=== PATIENT | female | born 1970 | race Caucasian/White ===

== ENCOUNTER 2024-03-13 00:39 | Inpatient (IN) | payer OTHER ==
[~2024-03-13] VITALS: Ht 167.6 cm; Wt 59.0 kg
[~2024-03-13 00:39] MED LIST: LEVO175T7 PO; PRED10TA PO
[2024-03-13] MEDS: IV NS 1000 ML 1,000 ML IV ONE (01:14)
[2024-03-13 01:15] LABS: BASOPHILS # (AUTO) 0.1 K/UL (0.0-0.2); BASOPHILS % (AUTO) 1.1 % (0.0-2.0); EOSINOPHILS # (AUTO) 0.1 K/uL (0.0-0.7); EOSINOPHILS % (AUTO) 2.3 % (0.0-7.0); HEMATOCRIT 30.4 % (31.2-41.9); LYMPHOCYTES # (AUTO) 2.4 K/uL (0.8-4.8); LYMPHOCYTES % (AUTO) 50.7 % (20.5-51.5); MEAN CORPUSCULAR HEMOGLOBIN 20.5 uug (24.7-32.8); MEAN CORPUSCULAR HGB CONC 30 g/dL (32.3-35.6); MEAN CORPUSCULAR VOLUME 68.9 fL (75.5-95.3); MONOCYTES # (AUTO) 0.4 K/uL (0.1-1.30); MONOCYTES % (AUTO) 9.4 % (0.0-11.0); NEUTROPHILS # (AUTO) 1.7 K/uL (1.8-8.9); NEUTROPHILS % (AUTO) 36.5 % (38.5-71.5); PLATELET COUNT (AUTO) 310 K/uL (179-408); RED BLOOD CELL COUNT(AUTO) 4.42 MIL/uL (3.63-4.92); RED CELL DISTRIBUTION WIDTH 28.5 % (12.3-17.7); WHITE BLOOD COUNT (AUTO) 4.7 K/uL (3.8-11.8)
[2024-03-13] MEDS: MORPHINE SULFATE 4 MG/1 ML DISP.SYRIN IV ONE ×2 (01:16→08:30)
[2024-03-13] MEDS: ONDANSETRON 4 MG/2 ML VIAL IV ONE ×2 (01:17→08:30)
[2024-03-13 01:30] LABS: MAGNESIUM 1.8 mg/dL (1.8-2.4)
[2024-03-13 01:36] LABS: ALBUMIN 3.7 g/dL (3.4-5.0); BILIRUBIN,DIRECT 0.1 mg/dL (0.0-0.2); BILIRUBIN,TOTAL 0.2 mg/dL (0.2-1.0); CALCIUM 8.4 mg/dL (8.5-10.1); CREATININE 0.6 mg/dL (0.6-1.3); POTASSIUM 3.9 mmol/L (3.5-5.1); TOTAL PROTEIN, SERUM 7.6 g/dL (6.4-8.2)
[2024-03-13 02:13] LABS: DIFFERENTIAL COMMENT 1
[2024-03-13 02:34] LABS: *BILIRUBIN,URIN NEGATIVE (NEGATIVE); *CLARITY,URINE CLEAR (CLEAR); *COLOR,URINE YELLOW (YELLOW); *KETONES,URINE NEGATIVE (NEGATIVE); *PROTEIN,URINE NEGATIVE (NEGATIVE); *UROBILINOGEN,URINE 0.2 E.U./dl (NORMAL); LEUKOCYTE ESTERASE ,URINE NEGATIVE (NEGATIVE); NITRITE, URINE NEGATIVE (NEGATIVE); PH,URINE 5.5 (5.0-8.0); UGLUCOSE NEGATIVE (NEGATIVE)
[2024-03-13 02:37] LABS: *BLOOD, URINE TRACE (NEGATIVE)
[2024-03-13 03:15] LABS: BAND % (MANUAL) 1 % (0-10); EOSINOPHILS % (MANUAL) 5 % (0-8); LYMPHOCYTES % (MANUAL) 58 % (20-40); MONOCYTES % (MANUAL) 5 % (2-10); NEUTROPHILS % (MANUAL) 31 % (42-75)
[2024-03-13 03:16] LABS: ANISOCYTOSIS 1+; HYPOCHROMASIA 1+; PLATELET ESTIMATE ADEQUATE
[2024-03-13 03:17] LABS: OVALOCYTES 1+
[2024-03-13 03:19] LABS: RBC,URINE 0-3 /HPF (0-3); WBC,URINE NONE SEEN /HPF (0-3)
[2024-03-13] MEDS ORDERED: MORPHINE SULFATE 4 MG/1 ML DISP.SYRIN ONE (08:27)
[2024-03-13] MEDS ORDERED: ONDANSETRON 4 MG/2 ML VIAL ONE (08:27)
[2024-03-13] MEDS ORDERED: LIDOCAINE VISCUS 2% 15 ML UDC ONE (08:27)
[2024-03-13] MEDS: IV NORMAL SALINE 500 ML BAG IV ONE (08:31)
[2024-03-13] MEDS: LIDOCAINE 2% (GLYDO= UROJET) 10 ML JELLY MM ONE (08:31)
[2024-03-13] MEDS: LIDOCAINE VISCUS 2% 15 ML UDC MM ONE (09:12)
[2024-03-13] MEDS ORDERED: ONDANSETRON 4 MG/2 ML VIAL IV PRN (09:15)
[2024-03-13] MEDS: THIAMINE HCL INJ 100 MG in IV DEXTROSE 5% 50 ML IV SCH (11:18)
[2024-03-13] MEDS: FOLIC ACID 1 MG in IV DEXTROSE 5% 50 ML IV SCH (11:18)
[2024-03-13] MEDS: IV D5 1/2 NS 1000 ML 1,000 ML IV PRN (11:22)
[2024-03-13] MEDS ORDERED: CHOL-35 PO (14:23)
[2024-03-13] MEDS ORDERED: ATOR20TA PO (14:23)
[2024-03-13] MEDS ORDERED: FERR-68 PO (14:23)
[2024-03-13] MEDS ORDERED: CALC-959 PO (14:23)
[2024-03-13] MEDS ORDERED: NALT50TA PO (14:23)
[2024-03-13] MEDS ORDERED: GABA-532 PO (14:23)
[2024-03-13] MEDS ORDERED: MELO-105 PO (14:23)
[2024-03-13] MEDS ORDERED: BUPR75TA8 PO (14:23)
[2024-03-13] MEDS ORDERED: DULO60CA45 PO (14:23)
[2024-03-13] MEDS ORDERED: THIA100T70 PO (14:23)
[2024-03-13] MEDS ORDERED: FOLI1TAB94 PO (14:23)
[2024-03-13] MEDS: MORPHINE SULFATE 2 MG/1 ML DISP.SYRIN IV PRN (17:37)
[2024-03-13 20:00] VITALS: BP 141/96; TEMP 97.8; O2SAT 94
[2024-03-14 07:01] VITALS: BP 149/99; TEMP 98; O2SAT 96
[2024-03-14 07:23] LABS: BASOPHILS % (AUTO) 0.7 % (0.0-2.0); EOSINOPHILS # (AUTO) 0.1 K/uL (0.0-0.7); EOSINOPHILS % (AUTO) 1.6 % (0.0-7.0); HEMATOCRIT 28.6 % (31.2-41.9); HEMOGLOBIN 8.5 g/dL (10.9-14.3); LYMPHOCYTES # (AUTO) 1.1 K/uL (0.8-4.8); LYMPHOCYTES % (AUTO) 19.7 % (20.5-51.5); MEAN CORPUSCULAR HEMOGLOBIN 20.3 uug (24.7-32.8); MEAN CORPUSCULAR HGB CONC 30 g/dL (32.3-35.6); MEAN CORPUSCULAR VOLUME 68.6 fL (75.5-95.3); MONOCYTES # (AUTO) 0.6 K/uL (0.1-1.30); MONOCYTES % (AUTO) 10.9 % (0.0-11.0); NEUTROPHILS # (AUTO) 3.7 K/uL (1.8-8.9); NEUTROPHILS % (AUTO) 67.1 % (38.5-71.5); PLATELET COUNT (AUTO) 292 K/uL (179-408); RED BLOOD CELL COUNT(AUTO) 4.18 MIL/uL (3.63-4.92); RED CELL DISTRIBUTION WIDTH 28.1 % (12.3-17.7); WHITE BLOOD COUNT (AUTO) 5.5 K/uL (3.8-11.8)
[2024-03-14 07:47] LABS: THYROID STIMULATING HORMONE 4.23 mIU/mL (0.358-3.740)
[2024-03-14 08:12] LABS: CALCIUM 8.1 mg/dL (8.5-10.1); CREATININE 0.5 mg/dL (0.6-1.3); MAGNESIUM 1.4 mg/dL (1.8-2.4); PHOSPHOROUS 3.1 mg/dL (2.5-4.9); POTASSIUM 2.9 mmol/L (3.5-5.1)
[2024-03-14 08:15] LABS: DIFFERENTIAL COMMENT 1
[2024-03-14 10:06] LABS: CARCINOEMBRYONIC AG (CEA) 2.1 ng/mL (0.0-4.7)
[2024-03-14] MEDS: POTASSIUM CHLORIDE 50 ML IV SCH (11:07)
[2024-03-14] MEDS: MAGNESIUM SULFATE/D5W 100 ML IV SCH (11:10)
[2024-03-14 11:37] LABS: EOSINOPHILS % (MANUAL) 1 % (0-8); LYMPHOCYTES % (MANUAL) 18 % (20-40); MONOCYTES % (MANUAL) 10 % (2-10); NEUTROPHILS % (MANUAL) 71 % (42-75); PLATELET ESTIMATE ADEQUATE
[2024-03-14 11:38] LABS: ANISOCYTOSIS 2+; HYPOCHROMASIA 1+
[2024-03-14 11:40] LABS: TEAR DROP CELLS 1+
[2024-03-14] MEDS ORDERED: IOHEXOL 300MG/ML 100 ML INFUS..BTL ONE (12:07)
[2024-03-14] MEDS ORDERED: IV NORMAL SALINE 250 ML IV ONE (12:07)
[2024-03-14] MEDS ORDERED: SWABABLE VALVE TRANSFER SET EA MC ONE (12:07)
[2024-03-14 13:00] VITALS: BP 143/92; TEMP 98.3; O2SAT 97
[2024-03-14 16:00] VITALS: BP 150/94; TEMP 98.2; O2SAT 97
[2024-03-14] MEDS: SOD FERRIC GLUC COMPLX/SUCROSE 125 MG in IV NORMAL SALINE 100 ML IV SCH (16:43)
[2024-03-14 19:45] VITALS: BP 145/93; TEMP 97.9; O2SAT 97
[2024-03-14] MEDS: LORAZEPAM 2 MG/1 ML VIAL IV PRN (19:57)
[2024-03-15 05:36] VITALS: BP 134/82; TEMP 98.3; O2SAT 95
[2024-03-15] MEDS: LEVOTHYROXINE SODIUM 175 MCG TABLET PO SCH (06:21)
[2024-03-15 06:41] LABS: BASOPHILS % (AUTO) 0.9 % (0.0-2.0); EOSINOPHILS # (AUTO) 0.2 K/uL (0.0-0.7); EOSINOPHILS % (AUTO) 4.4 % (0.0-7.0); HEMATOCRIT 30.2 % (31.2-41.9); LYMPHOCYTES % (AUTO) 24.6 % (20.5-51.5); MEAN CORPUSCULAR HEMOGLOBIN 21.1 uug (24.7-32.8); MEAN CORPUSCULAR HGB CONC 30 g/dL (32.3-35.6); MEAN CORPUSCULAR VOLUME 70.9 fL (75.5-95.3); MONOCYTES # (AUTO) 0.4 K/uL (0.1-1.30); MONOCYTES % (AUTO) 10.1 % (0.0-11.0); NEUTROPHILS # (AUTO) 2.6 K/uL (1.8-8.9); PLATELET COUNT (AUTO) 309 K/uL (179-408); RED BLOOD CELL COUNT(AUTO) 4.26 MIL/uL (3.63-4.92); RED CELL DISTRIBUTION WIDTH 27.6 % (12.3-17.7); WHITE BLOOD COUNT (AUTO) 4.3 K/uL (3.8-11.8)
[2024-03-15 06:55] LABS: CALCIUM 8.6 mg/dL (8.5-10.1); CREATININE 0.5 mg/dL (0.6-1.3); POTASSIUM 3.4 mmol/L (3.5-5.1)
[2024-03-15] MEDS ORDERED: LEVOTHYROXINE SODIUM 175 MCG TABLET PO SCH ×2 (07:00)
[2024-03-15] MEDS ORDERED: LORAZEPAM 2 MG/1 ML VIAL IV PRN (07:45)
[2024-03-15] MEDS ORDERED: DULOXETINE 60 MG CAPSULE.DR PO SCH (09:00)
[2024-03-15] MEDS ORDERED: FERROUS SULFATE 325 MG TABEC PO SCH (09:00)
[2024-03-15] MEDS ORDERED: GABAPENTIN 300 MG CAPSULE PO SCH (09:00)
[2024-03-15] MEDS ORDERED: predniSONE 10 MG TABLET PO SCH ×2 (09:00)
[2024-03-15] MEDS ORDERED: GABAPENTIN 100 MG CAPSULE PO SCH (09:00)
[2024-03-15 09:08] LABS: AFP, TUMOR MARKER <1.8 ng/mL (0.0-9.2); CANCER AG, 125 13.8 U/mL (0.0-38.1); CANCER ANTIGEN 15-3 42.6 U/mL (0.0-25.0); FOLATE (FOLIC ACID), SERUM >20.0 ng/mL (>3.0)
[2024-03-15 09:48] LABS: *OCCULT BLOOD STOOL NEGATIVE (NEGATIVE)
[2024-03-15] MEDS: DULOXETINE 60 MG CAPSULE.DR PO SCH (09:57)
[2024-03-15] MEDS: CHOLECALCIFEROL 1,000 UNIT TABLET PO SCH (09:58)
[2024-03-15] MEDS: CALCIUM CARB/VITAMIN D 600-400 MG TABLET PO SCH (09:58)
[2024-03-15] MEDS: FOLIC ACID 1 MG TABLET PO SCH (09:58)
[2024-03-15] MEDS: THIAMINE HCL 100 MG TABLET PO SCH (09:58)
[2024-03-15] MEDS: POTASSIUM CHLORIDE 20 MEQ TAB.PRT.SR PO ONE (10:00)
[2024-03-15] MEDS: buPROPion 75 MG TABLET PO SCH (10:00)
[2024-03-15 12:00] VITALS: BP 141/101; TEMP 97.5; O2SAT 97
[2024-03-15] MEDS: CHLORDIAZEPOXIDE HCL 25 MG CAPSULE PO SCH (12:08)
[2024-03-15] MEDS: SOD FERRIC GLUC COMPLX/SUCROSE 125 MG in IV NORMAL SALINE 100 ML IV SCH (14:02)
[2024-03-15] MEDS ORDERED: LEVO150T8 PO (14:20)
[2024-03-15] MEDS ORDERED: PRED-170 PO (14:20)
[2024-03-15 16:00] VITALS: BP 117/77; TEMP 98; O2SAT 93
[2024-03-15] MEDS ORDERED: MULT-594 PO (16:29)
[2024-03-15] MEDS ORDERED: TRAZ-257 PO (16:29)
[2024-03-15] MEDS: GABAPENTIN 300 MG CAPSULE PO SCH (17:27)
[2024-03-15 20:00] VITALS: BP 140/95; TEMP 97.8; O2SAT 95
[2024-03-15] MEDS: ATORVASTATIN 20 MG TABLET PO SCH (20:42)
[2024-03-16] MEDS: TRAZODONE 100 MG TABLET PO PRN (00:23)
[2024-03-16 03:10] LABS: HEPATITIS B SURFACE AB, QUAL Non Reactive (.); HEPATITIS B SURFACE AG Negative (Negative); HEPATITIS C VIRUS ANTIBODY Non Reactive (Non Reactive)
[2024-03-16 04:00] VITALS: BP 135/90; TEMP 98; O2SAT 96
[2024-03-16] MEDS: LEVOTHYROXINE SODIUM 150 MCG TABLET PO SCH (06:06)
[2024-03-16 07:09] LABS: *IMMUNOGLOBULIN G, SERUM 1043 mg/dL (586-1602); IMMUNOGLOBULIN A, SERUM 467 mg/dL (87-352); IMMUNOGLOBULIN M, SERUM 223 mg/dL (26-217)
[2024-03-16 07:18] LABS: CALCIUM 8.5 mg/dL (8.5-10.1); CREATININE 0.5 mg/dL (0.6-1.3); POTASSIUM 3.5 mmol/L (3.5-5.1)
[2024-03-16 07:32] LABS: BASOPHILS # (AUTO) 0.1 K/UL (0.0-0.2); BASOPHILS % (AUTO) 1.5 % (0.0-2.0); EOSINOPHILS # (AUTO) 0.2 K/uL (0.0-0.7); EOSINOPHILS % (AUTO) 6.5 % (0.0-7.0); HEMATOCRIT 27.6 % (31.2-41.9); HEMOGLOBIN 8.2 g/dL (10.9-14.3); LYMPHOCYTES % (AUTO) 28.8 % (20.5-51.5); MEAN CORPUSCULAR HEMOGLOBIN 21.2 uug (24.7-32.8); MEAN CORPUSCULAR HGB CONC 30 g/dL (32.3-35.6); MEAN CORPUSCULAR VOLUME 71.3 fL (75.5-95.3); MONOCYTES # (AUTO) 0.3 K/uL (0.1-1.30); MONOCYTES % (AUTO) 9.1 % (0.0-11.0); NEUTROPHILS # (AUTO) 1.8 K/uL (1.8-8.9); NEUTROPHILS % (AUTO) 54.1 % (38.5-71.5); PLATELET COUNT (AUTO) 268 K/uL (179-408); RED BLOOD CELL COUNT(AUTO) 3.88 MIL/uL (3.63-4.92); RED CELL DISTRIBUTION WIDTH 27.3 % (12.3-17.7); WHITE BLOOD COUNT (AUTO) 3.4 K/uL (3.8-11.8)
[2024-03-16 07:33] LABS: DIFFERENTIAL COMMENT 1
[2024-03-16] MEDS: REMEDY ESSENTIAL ZINC PASTE 113 GM TP PRN (08:49)
[2024-03-16] MEDS: predniSONE 5 MG TABLET PO SCH (08:50)
[2024-03-16 12:02] VITALS: BP 99/69; TEMP 98.1; O2SAT 95
[2024-03-16 12:16] VITALS: BP 99/65; TEMP 97.9; O2SAT 93
[2024-03-16] MEDS: VANCOMYCIN FOR PO/GT/NG USE PO SCH (12:58)
[2024-03-16 14:06] LABS: FREE KAPPA LT CHAINS SERUM 35.6 mg/L (3.3-19.4); KAPPA/LAMBDA RATIO SERUM 1.05 (0.26-1.65)
[2024-03-16 16:12] VITALS: BP 107/75; TEMP 97.3; O2SAT 93
[2024-03-16 20:30] VITALS: BP 98/62; TEMP 98.1; O2SAT 95
[2024-03-17 04:06] LABS: ALPHA-1-GLOBULIN 0.2 g/dL (0.0-0.4); ALPHA-2-GLOBULIN 0.6 g/dL (0.4-1.0); BETA GLOBULIN 1.2 g/dL (0.7-1.3); M-SPIKE Not Observed g/dL (Not Observed)
[2024-03-17 06:09] VITALS: BP 98/62; TEMP 97.7; O2SAT 97
[2024-03-17 06:54] LABS: BASOPHILS # (AUTO) 0.1 K/UL (0.0-0.2); BASOPHILS % (AUTO) 1.4 % (0.0-2.0); EOSINOPHILS # (AUTO) 0.2 K/uL (0.0-0.7); EOSINOPHILS % (AUTO) 5.6 % (0.0-7.0); HEMATOCRIT 29.1 % (31.2-41.9); HEMOGLOBIN 8.7 g/dL (10.9-14.3); LYMPHOCYTES # (AUTO) 1.3 K/uL (0.8-4.8); LYMPHOCYTES % (AUTO) 34.1 % (20.5-51.5); MEAN CORPUSCULAR HGB CONC 30 g/dL (32.3-35.6); MEAN CORPUSCULAR VOLUME 70.5 fL (75.5-95.3); MONOCYTES # (AUTO) 0.4 K/uL (0.1-1.30); MONOCYTES % (AUTO) 11.3 % (0.0-11.0); NEUTROPHILS # (AUTO) 1.8 K/uL (1.8-8.9); NEUTROPHILS % (AUTO) 47.6 % (38.5-71.5); PLATELET COUNT (AUTO) 314 K/uL (179-408); RED BLOOD CELL COUNT(AUTO) 4.12 MIL/uL (3.63-4.92); RED CELL DISTRIBUTION WIDTH 27.5 % (12.3-17.7); WHITE BLOOD COUNT (AUTO) 3.9 K/uL (3.8-11.8)
[2024-03-17 07:05] LABS: CALCIUM 8.2 mg/dL (8.5-10.1); CREATININE 0.5 mg/dL (0.6-1.3); POTASSIUM 3.7 mmol/L (3.5-5.1)
[2024-03-17] MEDS ORDERED: VANC500V PO (09:17)
[2024-03-17 12:00] VITALS: BP 107/71; TEMP 97.8; O2SAT 97
[2024-03-17 16:00] VITALS: BP 108/70; TEMP 97.6; O2SAT 97
== END 2024-03-17 19:30 | disposition other institution (70) | DRG 247 ==
LOC: ER 00:41 → MEDSURG3 09:22
PROVIDERS: ADMIT Internal Medicine; ATTEND Internal Medicine
PROC: 0D9670Z Drainage of Stomach with Drainage Device, Via Natural or Artificial Opening (ICD-10-PCS; principal; 2024-03-13)
PROC: 05HC33Z Insertion of Infusion Device into Left Basilic Vein, Percutaneous Approach (ICD-10-PCS; 2024-03-15)
DX: K56.609 Unspecified intestinal obstruction, unspecified as to partial versus complete obstruction (principal); E87.0 Hyperosmolality and hypernatremia; A04.72 Enterocolitis due to Clostridium difficile, not specified as recurrent; C78.7 Secondary malignant neoplasm of liver and intrahepatic bile duct; D63.8 Anemia in other chronic diseases classified elsewhere; E86.0 Dehydration; D39.8 Neoplasm of uncertain behavior of other specified female genital organs; F10.229 Alcohol dependence with intoxication, unspecified; D50.9 Iron deficiency anemia, unspecified; D72.820 Lymphocytosis (symptomatic); E89.0 Postprocedural hypothyroidism; F41.9 Anxiety disorder, unspecified; Z85.850 Personal history of malignant neoplasm of thyroid; M06.9 Rheumatoid arthritis, unspecified; F43.10 Post-traumatic stress disorder, unspecified; Z59.02 Unsheltered homelessness; K44.9 Diaphragmatic hernia without obstruction or gangrene; M16.11 Unilateral primary osteoarthritis, right hip; J98.11 Atelectasis; R97.0 Elevated carcinoembryonic antigen [CEA]; Z79.890 Hormone replacement therapy; Z79.899 Other long term (current) drug therapy; Y90.8 Blood alcohol level of 240 mg/100 ml or more; Z87.19 Personal history of other diseases of the digestive system; M48.061 Spinal stenosis, lumbar region without neurogenic claudication
CPT/HCPCS: 36415; 70030-TC; 71045; 71260; 74018; 76641-TC; 82105; 82378; 82746; 82784; 83550; 83605; 83690; 83735; 84100; 84155; 84165; 84443; 85025; 85610; 85730; 86300; 86301; 86334; 86706; 86803; 87340; 93005; 94003; A4606; A4663; G0378; G0480; J2060; J2270; J2405; J2916; J3370; J3411; J3475; J3480; J3490; J7040; J7042; J7512; Q9967

== ENCOUNTER 2024-09-23 21:07 | Emergency (ER) | payer OTHER ==
[~2024-09-23] VITALS: Ht 162.6 cm; Wt 59.0 kg
[2024-09-23] MEDS: IV NS 1000 ML 1,000 ML IV ONE (00:46)
[~2024-09-23 21:07] MED LIST changes: +ATOR20TA PO; +BUPR75TA8 PO; +CALC-959 PO; +CHOL-35 PO; +DULO60CA45 PO; +FERR-68 PO; +FOLI1TAB94 PO; +GABA-532 PO; +LEVO150T8 PO; -LEVO175T7 PO; +MELO-105 PO; +MULT-594 PO; +NALT50TA PO; +PRED-170 PO; -PRED10TA PO; +THIA100T70 PO; +TRAZ-257 PO; +VANC500V PO
[2024-09-23] MEDS: CEFTRIAXONE 1 G in IV DEXTROSE 5% 50 ML IV ONE (23:45)
[2024-09-24 00:12] LABS: BASOPHILS % (AUTO) 0.3 % (0.0-2.0); EOSINOPHILS % (AUTO) 0.3 % (0.0-7.0); HEMATOCRIT 38.9 % (31.2-41.9); HEMOGLOBIN 13.1 g/dL (10.9-14.3); LYMPHOCYTES # (AUTO) 1.5 K/uL (0.8-4.8); LYMPHOCYTES % (AUTO) 23.1 % (20.5-51.5); MEAN CORPUSCULAR HEMOGLOBIN 31.4 uug (24.7-32.8); MEAN CORPUSCULAR HGB CONC 34 g/dL (32.3-35.6); MEAN CORPUSCULAR VOLUME 93.5 fL (75.5-95.3); MONOCYTES # (AUTO) 0.3 K/uL (0.1-1.30); MONOCYTES % (AUTO) 5.1 % (0.0-11.0); NEUTROPHILS # (AUTO) 4.5 K/uL (1.8-8.9); NEUTROPHILS % (AUTO) 71.2 % (38.5-71.5); PLATELET COUNT (AUTO) 254 K/uL (179-408); RED BLOOD CELL COUNT(AUTO) 4.16 MIL/uL (3.63-4.92); RED CELL DISTRIBUTION WIDTH 15.4 % (12.3-17.7); WHITE BLOOD COUNT (AUTO) 6.3 K/uL (3.8-11.8)
[2024-09-24] MEDS ORDERED: CEFTRIAXONE /D5W 50ML IVPB **ER PYXIS IV ONE (00:15)
[2024-09-24 00:25] LABS: DIFFERENTIAL COMMENT 1
[2024-09-24] MEDS ORDERED: CEPH500T PO (00:31)
[2024-09-24 00:58] LABS: ALBUMIN 3.4 g/dL (3.4-5.0); BILIRUBIN,TOTAL 0.2 mg/dL (0.2-1.0); CALCIUM 8.4 mg/dL (8.5-10.1); CREATININE 0.7 mg/dL (0.6-1.3); POTASSIUM 3.6 mmol/L (3.5-5.1); TOTAL PROTEIN, SERUM 7.2 g/dL (6.4-8.2)
[2024-09-24 02:15] LABS: *BILIRUBIN,URIN NEGATIVE (NEGATIVE); *BLOOD, URINE TRACE (NEGATIVE); *CLARITY,URINE CLEAR (CLEAR); *COLOR,URINE YELLOW (YELLOW); *KETONES,URINE NEGATIVE (NEGATIVE); *PROTEIN,URINE NEGATIVE (NEGATIVE); *UROBILINOGEN,URINE 0.2 E.U./dl (NORMAL); LEUKOCYTE ESTERASE ,URINE TRACE (NEGATIVE); NITRITE, URINE NEGATIVE (NEGATIVE); PH,URINE 5.5 (5.0-8.0); UGLUCOSE NEGATIVE (NEGATIVE)
[2024-09-24] MEDS ORDERED: KETOROLAC TROMETHAMINE 30 MG INJ IVP ONE (02:30)
[2024-09-24 02:32] LABS: *AMPHETAMINE, URINE NEGATIVE (NEGATIVE); *BARBITURATE, URINE NEGATIVE (NEGATIVE); *BENZODIAZEPINE, URINE POSITIVE (NEGATIVE); *CANNABINOID, URINE NEGATIVE (NEGATIVE); *COCCAINE, URINE NEGATIVE (NEGATIVE); *OPIATE, URINE NEGATIVE (NEGATIVE); *PHENCYCLIDINE SCREEN,URINE NEGATIVE (NEGATIVE); FENTANYL, URINE NEGATIVE (NEGATIVE)
[2024-09-24] MEDS ORDERED: KETOROLAC TROMETHAMINE 30 MG INJ ONE (02:32)
[2024-09-24] MEDS: KETOROLAC TROMETHAMINE 30 MG INJ IVP ONE (02:41)
[2024-09-24 03:04] LABS: BACTERIA,URINE FEW /HPF (NONE SEEN); MUCUS,URINE FEW /LPF (0-FEW); SQUAMOUS EPITHELIAL CELL,UR FEW /HPF (NONE SEEN); YEAST,URINE FEW /HPF (NONE SEEN)
[2024-09-24 03:26] VITALS: BP 124/72; O2SAT 99
== END 2024-09-24 03:28 | disposition home or self-care (01) ==
LOC: ER 21:07
DX: T24.012A Burn of unspecified degree of left thigh, initial encounter (principal); L03.116 Cellulitis of left lower limb; F10.229 Alcohol dependence with intoxication, unspecified; F17.200 Nicotine dependence, unspecified, uncomplicated; M19.90 Unspecified osteoarthritis, unspecified site; Z79.1 Long term (current) use of non-steroidal anti-inflammatories (NSAID); Z79.52 Long term (current) use of systemic steroids; Z79.890 Hormone replacement therapy; Z79.899 Other long term (current) drug therapy; Z59.00 Homelessness unspecified; X10.1XXA Contact with hot food, initial encounter; Y93.89 Activity, other specified; Y92.89 Other specified places as the place of occurrence of the external cause; Y99.8 Other external cause status
CPT/HCPCS: 80053; 85025; 87040; 36415; 99284; 96361; 96365; 80320; 80307; 81001; 96375; 87086; J0696; J1885; A4606; A4663; C1758; G0480